=== PATIENT | female | born 1965 | race Caucasian/White ===

== ENCOUNTER 2019-08-15 12:44 | Outpatient (CLI) | payer SELFPAY ==
--- NOTE | 2019-08-15 13:00 | MR_ITS ---
WS: [id number] MRI CERVICAL SPINE HISTORY: stenosis COMPARISON: MRI cervical spine 07/25/2013. CT cervical spine 09/02/2018. Mild LEFT convex curvature cervical spine. Mild straightening of the posterior vertebral bodies. No m arrow edema or fracture. There is mild disc space narrowing at C5-6. Signal within the cervical cord is normal. Visualized posterior fossa is unremarkable. Craniocervical junction, C1 and C2 relationship, odontoid process and soft tissues are normal. C2-C3: Normal. C3-C4: Mild osteophytic ridging with no stenosis. C4-C5: Mild annular disc bulging and osteophytic ridging. Mild RIGHT foraminal stenosis due to disc o steophyte disease. There is mild central stenosis. C5-C6: Moderate central canal stenosis due to combination of annular disc bulging, osteophytic ridgin g and facet arthritis. Disc osteophyte complexes extend into the foramen bilaterally. Moderate LEFT a nd mild RIGHT foraminal stenosis with moderate central stenosis. Near complete effacement of CSF. C6-C7: Annular disc bulging with diffuse osteophytic ridging. Mild central stenosis and bilateral for aminal stenosis. C7-T1: No stenosis. Paraspinal soft tissue are normal. MR/MR cervical spin wo con* [id number] IMPRESSION: 1. Moderate central and LEFT foraminal stenosis at C5-6 with mild RIGHT forami nal stenosis. Due to combination of disc disease, osteophytic bridging and face t arthritis. 2. Mild central stenosis at C4-5 and C6-7. 3. Moderate RIGHT foraminal stenosis at C4-5 and bilaterally at C6-7 due to co mbination of osteophyte disease and facet disease.
== END 2019-08-15 12:45 | disposition home or self-care (01) ==
LOC: RADSHAW 12:50
PROVIDERS: Family Provider Family Medicine; PCP Family Medicine; Visit Provider Specialist
DX: M48.02 Spinal stenosis, cervical region (principal); M25.78 Osteophyte, vertebrae
CPT/HCPCS: 72141

== ENCOUNTER → 2019-09-05 07:47 | Outpatient (BNVA) | payer SELFPAY | PROVIDERS: Family Provider Family Medicine; PCP Family Medicine; Visit Provider Specialist | DX: M50.022 Cervical disc disorder at C5-C6 level with myelopathy (principal); F17.210 Nicotine dependence, cigarettes, uncomplicated | CPT/HCPCS: 99214 ==

== ENCOUNTER 2019-09-12 16:39 | Outpatient (RCR) | payer SELFPAY | END 2019-09-21 14:14 | disposition home or self-care (01) | LOC: SPT 16:39 | PROVIDERS: PCP Family Medicine; Visit Provider Specialist | DX: M54.2 Cervicalgia (principal) | CPT/HCPCS: 97110; 97161 ==

== ENCOUNTER 2019-09-19 13:59 | Outpatient (CLI) | payer SELFPAY ==
--- NOTE | 2019-09-19 14:06 | XR_ITS ---
WS: [id number] Lateral views of cervical spine in the flexion, extension and neutral positions. 09/19/2019 Clinical Data: Cervical stenosis Comparison: None. Findings: Normal flexion and extension occur. There is no limitation of motion or subluxation during flexion or extension. No prevertebral soft tissue swelling is seen. The disc heights are normal. XR/XR cervical spine fl/ex [id number] Impression: Normal flexion and extension imaging of the lateral cervical spine.
== END 2019-09-19 14:00 | disposition home or self-care (01) ==
LOC: RADWPI 14:02
PROVIDERS: Family Provider Family Medicine; PCP Family Medicine; Visit Provider Licensed Practical Nurse
DX: M48.02 Spinal stenosis, cervical region (principal)
CPT/HCPCS: 72040

== ENCOUNTER 2019-10-06 09:15 | Outpatient (CLI) | payer SELFPAY ==
--- NOTE | 2019-10-06 09:18 | CT_ITS ---
WS: [id number] CT CERVICAL MYELOGRAM TECHNIQUE: CT of the cervical spine coronal and sagittal reformatted images post intrathecal administ ration of contrast. CLINICAL INFORMATION: Cervical stenosis COMPARISON: MRI August 15, 2019 DLP: 327.[address] scans at [facility] use at least one of these dose optimization techniques: automat ed exposure control; mA and/or kV adjustment per patient size (includes targeted exams where dose is matched to clinical indication); or iterative reconstruction. FINDINGS: Straightening of the normal cervical lordosis. Good myelographic opacification of the cervical canal. No high-grade central canal stenosis. Mild disc osteophyte complex more prominent at C5-C6. Alignmen t is unchanged since the prior MRI. C2-C3: Mild right and no significant left foraminal narrowing. Spinal canal is patent. C3-C4: No significant disc bulging. Mild facet arthropathy. Spinal canal and foramen are patent. C4-C5: Mild osteophytic ridging. Moderate right and no significant left foraminal narrowing. Moderate right facet arthropathy. Mild central canal stenosis. C5-C6: Disc osteophyte complex with endplate ridging. Mild to moderate central canal stenosis with se gill left and moderate right bony foraminal narrowing. Moderate facet arthropathy. C6-C7: Disc osteophytic ridging. Mild central canal stenosis. Mild left greater than right bony mae inal narrowing. Mild facet arthropathy. C7-T1: No significant disc bulging. Mild left and no significant right foraminal narrowing. Spinal ca nal is patent. Visualized posterior fossa structures: Normal. CT/CT cervical spine w con [id number] IMPRESSION: 1. Straightening of the normal cervical lordosis. Disc osteophyte complex wors e at C5-C6. 2. Mild/moderate central canal narrowing C5-C6 due to disc osteophyte complex. Severe left and moderate right foraminal narrowing at this level. 3. Mild central canal stenosis C4-C5 and C6-C7. 4. Otherwise mild to moderate bony foraminal narrowing more prominent at right C4-C5 and bilateral C6-7.
--- NOTE | 2019-10-06 09:18 | IR_ITS ---
WS: [id number] MYELOGRAM CERVICAL SPINE Fluoroscopic guided cervical myelogram CLINICAL INFORMATION: Cervical stenosis COMPARISON: None. TECHNIQUE: The procedure, including risks, benefits, and complications, were discussed with the patie nt who agreed to proceed. A timeout was performed to confirm correct patient, procedure, and site. Using sterile technique, the patient was prepped and draped in the usual sterile fashion. After admin istration of local anesthesia using 1% preservative-free lidocaine and using fluoroscopic guidance, a 22-gauge spinal needle was advanced into the subarachnoid space at the L3-L4 level. Subsequently 13 cc of Omnipaque 300 was administered into the thecal sac. The needle was removed and hemostasis was a chieved. Subsequently the table was tilted down and contrast flowed freely into the cervical spine. S pot fluoroscopic images were obtained. FLUOROSCOPIC TIME: 1.2 minutes. Spot fluoroscopic images demonstrate slight exaggeration normal cervical lordosis on the neutral view . Normal prevertebral soft tissues. Normal C1-2 articulation. No instability on flexion-extension. Please see CT myelogram report for additional detail. IR/IR myelogram sp cervical [id number] IMPRESSION: 1. Uncomplicated cervical myelogram. 2. No instability on flexion-extension. 3. Please see CT myelogram report for additional anatomic detail
== END 2019-10-06 09:16 | disposition home or self-care (01) ==
LOC: RAD 09:17
PROVIDERS: Family Provider Family Medicine; PCP Family Medicine; Visit Provider Specialist
DX: M48.02 Spinal stenosis, cervical region (principal); M25.78 Osteophyte, vertebrae
CPT/HCPCS: 62302; 72040; 72126; J2001; Q9967